=== PATIENT | female | born 1980 | race Caucasian/White ===

== ENCOUNTER 2016-09-09 12:36 | Inpatient (IN) | payer OTHER ==
[~2016-09-09] VITALS: Ht 167.6 cm; Wt 92.8 kg
[~2016-09-09 12:36] MED LIST: CEPH500C PO; FLUO20TA28 PO; MULT1CAP33 PO; OXYB15TA PO; OXYC1TAB24 PO; TRAZ-115 PO
[2016-09-09] MEDS ORDERED: CeFAZolin 2 Gm/50 mL D5W IV Premix IV ONE (13:24)
[2016-09-09 13:30] VITALS: BP 115/81; PULSE 90; RESP 14; O2SAT 97
[2016-09-09] MEDS ORDERED: Lactated Ringer's 1,000 ML IV ONE (13:30)
[2016-09-09] MEDS ORDERED: HYDR-3090 PO (14:14)
--- NOTE | 2016-09-09 15:37 | PCM.HPANE ---
Patient Data Surgeon Admitting Provider: Attending Provider:Benjamin Bojorquez DO Primary Care Physician:Darlyn Lynn MD Other Provider:Serina Gasparingham Anesthesia Reason for Visit Right Hip Infection Ht/WT & BMI Height (Feet): 5 Height (Inches): 6 Weight (Kilograms): 92.8 Body Mass Index 32.00, 32.00 Allergies Coded Allergies: hydroxyzine (Verified Allergy, Severe, anxiety, twitching, 09/09/16) duloxetine (Verified Adverse Reaction, Intermediate, metallic taste, BP increase, 09/09/16) Past Anesthesia History Anesthesia History: Denies:: Abnormal Airway, Anesthesia Reactions, Difficult Intubation, Fam Anesthesia Reaction, Fam Malignant Hypertherm, Malignant Hyperthermia Diabetes History Hx Diabetes?: No MRSA MRSA: No Medications Hypertension Medication: No Home Meds Incl Beta Colton: No Active Scripts Cephalexin 500 Mg [id number] Mg PO QID #56 CAPSULE Prov:Stephanie Gan PA-C 08/29/16 Reported Medications Hydrocodone-Acetaminophen 5-300 mg 1 Each Tablet2 Tablet PO Q4H PRN For Pain Ref 0 09/09/16 Multivitamin (Multivitamins)1 Each Capsule1 Each PO DAILY 08/26/16 Fluoxetine 20 Mg Cttequ06 Mg PO DAILY 08/26/16 Oxybutynin Chloride ER 15 Mg Tab.er.2415 Mg PO DAILY 08/26/16 Trazodone 50 Mg Eitqhz91 Mg PO HS PRN Insomnia 07/29/16 Discontinued Scripts oxyCODONE-Acetaminophen 5-325 mg 1 Each Tablet1-2 Each PO Q4H PRN For Pain #90 Max 8 per day Prov:Stephanie Gan PA-C 08/29/16 History History of ENT Problems?: No HEENT History: Denies:: Abnormal Airway Cataracts Difficult Intubation Dysphagia Glaucoma Hearing Problem Sinus Problem TMJ Hx of Heart Problems?: No Cardiovascular History: Denies:: AICD Abdominal Aortic Aneurism Atrial Fibrillation Cardiac Surgery Chest Pain Congestive Heart Failure Coronary Artery Disease Edema Heart Murmur Hypertension Irregular Heartbeat Pacemaker Peripheral Vascular Rheumatic Fever Thrombophlebitis Valvular Heart Disease Hx of Respiratory Problem?: No Respiratory History: Denies:: Asthma COPD Chest Surgery Cough Dyspnea Emphysema Hemoptysis Oxygen Administration Pneumonia Pulmonary Embolism Tuberculosis Use of C-PAP Machine Use of Inhalers / NEBS Hx Neurologic Problems?: No Neurological History: Denies:: Alzheimer's Disease CVA Dementia Dizziness Headaches Multiple Sclerosis Parkinson's Disease Seizures TIA Hx of GI Problems?: No Gastrointestinal History: Denies:: Cirrhosis Diverticulitis Gall Bladder Disease Gastroesphageal Reflux Gastrointestinal Bleeding Heartburn Hepatitis Hiatal Hernia Liver Disease Rectal Bleeding Hx of Problems?: No Genitourinary History: Denies:: HX of Hemodialysis Kidney Stones Urinary Tract Infection HX of Peritoneal Dialysis: No Female Hx: Denies:: Currently Endometriosis Pelvic Inflammatory Problems with Breasts? Skin History: Denies:: History Skin Disorders? Pressure Ulcers Hx Musculoskeletal Problems?: No Musculoskeletal History: Denies:: Back Injury Degenerative Joint Fibromyalgia Joint Replacement Musculoskeletal Trauma Myasthenia Gravis Osteoarthritis Rheumatoid Arthritis Systemic Lupus Hx of Psycho/Social Problems?: No Psycho Social History: Positive for:: Anxiety Hx Depression Denies:: Bipolar Disorder Hx Surgeries?: Yes ([facility]) Hx Any Other Health Problems?: No Other History: Positive for:: Hospitalization ([facility]) Denies:: Cancer Endocrine Disease Thyroid Disease History Blood Transfusions: Positive for:: Accept Blood Products? Blood Transfusions Denies:: Blood Transfuse Reaction Hx Diabetes: No Hx Alcohol Use: NoHx Substance Use: No Smoking Status: Never Smoker Have You Smoked inLast 12 mo: No Stop/Bang Treated for Sleep Apnea?: No Do You Have a CPAP Machine?: No S-Snoring: Do You Snore Loudly: No T-Tired: feel tired, fatigued: No O-Obsered: Observed not breath: No P-Blood Pressure: treated: No B- Body Mass Index > 35 kg/m2: No A- Age over 50: No N- Neck Large Circumference: No G- Gender Male: No OMER Total Score: 0 Risk Assessment Category Category 1A: Patient has history of documented sleep apnea, and HAS NOT received any narcotic, sedative or anesthesia administration during this stay. Category 1B: Patient has history of documented sleep apnea, and HAS received any narcotic , sedative or anesthesia administration during this stay Category 2: Patient has SUSPECTED Obstructive Sleep Apnea, and HAS received any narcotic , sedative or anesthesia administration during this stay. Category 3: Patient has SUSPECTED Obstructive Sleep Apnea and HAS NOT received narcotic, sedative or anesthesia administration during this stay. Category 4: Outpatient in Procedural Areas with known sleep apnea or who screen positive for High Risk via the STOP/BANG questionnaire. Exam Exam Vital Signs Vital Signs Date Time Temp Pulse Resp B/P Pulse Ox O2 Delivery O2 Flow Rate FiO2 09/09/16 13:30 36.9 90 14 115/81 97 Room Air General Appearance: Alert, Oriented X3, Cooperative, No Acute Distress HEENT/AIRWAY: MP 2 Lungs: Clear to Auscultation, Normal Air Movement Heart: Exam Unremarkable, Regular Rate/Rhythm, No Murmurs/Rubs/Gallops Meds/Labs/Diagnostics Admission Meds Current Medications Lactated Ringer's (Lr) 1,000 ml @ ud STK-MED ONCE IV Last administered on t 13:30; Start 09/09/16 at 13:30; Stop 09/09/16 at 14:10; Status DC Plan Impression Patient chart reviewed, patient interviewed and anesthestic plan with risks, benefits, and alternatives discussed, and informed consent obtained. NPO Status: 0700 ASA Physical Status: ASA2 Mod Systemic Disease Anesthetic Plan: GA Bene/Risks/Altern/Consents: Yes HP Complete Prior to Induction: Yes Phi Ybarra MD Sep 09, 2016 15:36
[2016-09-09] MEDS ORDERED: Lactated Ringer's 1,000 ML IV SCH (15:38)
[2016-09-09] MEDS ORDERED: Lactated Ringer's 500 ML IV PRN (15:38)
[2016-09-09] MEDS ORDERED: Ondansetron 2 mg/mL 2 mL Inj IVPUSH PRN ×2 (15:40→16:45)
[2016-09-09] MEDS ORDERED: MetoCLOpramide 5 mg/mL 2 mL Inj IVPUSH PRN (15:40)
[2016-09-09] MEDS ORDERED: Dexamethasone 4 mg/mL Inj IVPUSH PRN (15:40)
[2016-09-09] MEDS ORDERED: Phenylephrine 10,000 mCg/mL Inj IVPUSH PRN (15:40)
[2016-09-09] MEDS ORDERED: EPHEDrine Sulfate 50 mg/mL Inj IVPUSH PRN (15:40)
[2016-09-09 16:45] VITALS: BP 107/75; PULSE 94; RESP 15; O2SAT 98
[2016-09-09] MEDS ORDERED: Polyethylene Glycol (PEG) 17 Gm Powder PO PRN (16:45)
[2016-09-09] MEDS ORDERED: hydrOXYzine Pamoate 25 mg Capsule PO PRN (16:45)
[2016-09-09] MEDS ORDERED: Acetaminophen IV 1,000 MG in IV Premix 1 EACH IV PRN (16:45)
[2016-09-09] MEDS ORDERED: Magnesium Hydroxide 10 mL Oral Concentration PO PRN (16:45)
[2016-09-09] MEDS: fentaNYL-PF 50 mCg/mL 2 mL Inj IVPUSH PRN ×4 (16:55→17:30)
[2016-09-09] MEDS: HYDROmorphone 1 mg/mL Inj IVPUSH PRN ×5 (16:55→17:41)
--- NOTE | 2016-09-09 17:14 | OP ---
[address] [address] OPERATIVE REPORT PATIENT: ROLAND MCGREGOR : 1980 MR#: [id number] ADMIT: 09/09/2016 JOB ID: [id number] DATE OF SURGERY: 09/09/2016 SURGEON: Benjamin Bojorquez DO PREOPERATIVE DIAGNOSIS(ES): Right hip seroma. POSTOPERATIVE DIAGNOSIS(ES): Right hip seroma. PROCEDURE: Right hip irrigation debridement with wound VAC application. ANESTHESIA: General. INDICATIONS: The patient is a 35-year-old female, who underwent a right hip iliotibial band lengthening approximately four weeks ago; was initially doing well but then developed ecchymosis, bruising and ultimately an infected hematoma which was washed out August 26, 2016 with a drain placement. She then did well from this procedure; however developed increasing serous drainage from the wound and increasing pain over the past several days, and presented to the clinic today where she had some fluctuant swelling in the wound and serous drainage as well as some redness. We discussed treatment options and she wished to proceed with repeat irrigation debridement with wound VAC application. We discussed the risks, benefits, and possible complications of surgery, including, but not limited to injury to nerves and vessels, infection, bleeding, incomplete relief of symptoms, stiffness, need for additional procedures. The patient had good understanding. All questions were answered and she wished to proceed. PROCEDURE IN DETAIL: The patient was brought to the operating room. She was given a general anesthetic and placed comfortably into the lateral decubitus position. The right hip was sterilely prepped and draped. We removed her sutures and opened up the distal aspect of the incision. There was an eruption of serous fluid from the wound We sent some of this for culture. The cavity tracked superiorly, and therefore I opened the full extent of the previous surgical wound to get out the seroma cavity. I then used a curette to debride and curet the farr of the seroma cavity. Her iliotibial band was intact and did not have any purulence or breakdown on tendinous tissue. The wound was then copiously irrigated with pulse lavage after debriding necrotic fat and nonviable gelatinous material. The wound appeared to be clean with no significant residual bleeding. A wound VAC was then applied. I used white sponge first over the ITB, followed by the black foam sponge and applied the wound VAC which had very low leak rate and placed it at 125 mm continuous suction. The patient tolerated the procedure well. BLOOD LOSS: 50 cc. SPECIMEN: Right hip fluid. POSTOPERATIVE PROTOCOL: Have the patient remain partial weightbearing on the right lower extremity. I would like her to continue with the wound VAC for likely a period of about 72 hours and plan for a probable repeat I and D, delayed wound closure, and possible skin VAC application, perhaps Wednesday or Wednesday. Would also like to consult Infectious Disease regarding this unusual case. She had a sensitive staph which grew from her previous hematoma.
[2016-09-09 18:15] VITALS: BP 117/77; PULSE 65; RESP 18; O2SAT 99
[2016-09-09] MEDS ORDERED: fentaNYL-PF 50 mCg/mL 2 mL Inj ONE (18:16)
[2016-09-09] MEDS: 0.9% Sodium Chloride 1,000 ML IV SCH (18:32)
[2016-09-09] MEDS: oxyCODONE-Acetamin 5-325 mg Tablet PO PRN ×2 (18:32→23:10)
--- NOTE | 2016-09-09 18:38 | NUR ---
ADMIT TO [facility] Patient arrived to room [facility], was transferred to hospital bed via slide board and 3 ppl assist. Wound vac in place to R hip, continuous suction @ 125mmHg with sero-sanguineous output in drainage canister. On 2 LPM O2 via NC with O2 sats @ 99%. Stated pain is 7/10 burning pain in R hip. IV site was burning after attaching NS @ 100/hr. Turned off fluids, flushed with NS. Applied heat pack. Neurovascular checks WNL. Drinking ice water and apple juice without any problem. Oriented to room.
[2016-09-09] MEDS: Senna-Docusate 8.6-50 mg Tablet PO SCH (20:13)
[2016-09-09] MEDS: Sodium Chloride LOK Flush 10 mL Syringe IV SCH (23:11)
[2016-09-10 00:17] VITALS: BP 117/78; PULSE 52; RESP 20; O2SAT 93
[2016-09-10] MEDS: CeFAZolin Inj 2 GM in IV Premix 1 EACH IV SCH ×3 (00:17→16:39)
[2016-09-10] MEDS: 0.9% Sodium Chloride 1,000 ML IV SCH ×3 (02:44→22:10)
[2016-09-10] MEDS: oxyCODONE-Acetamin 5-325 mg Tablet PO PRN ×5 (02:48→23:10)
--- NOTE | 2016-09-10 03:06 | NUR ---
Pain & WoundVac Pain rates up to 04/15 at R hip this shift, so far managed with PO percocet. NS running at 60 ml/hr without pain, IV abx tolerated without complaint. Pt up to bedside commode to void, WBAT and used walker. Pt requested to remove supplemental O2, VS remain WNL. Wound vac intact to R hip with sanguinous drainage. Will continue to monitor and treat pain.
[2016-09-10] MEDS: HYDROmorphone 1 mg/mL Inj IVPUSH PRN ×2 (03:50→06:30)
[2016-09-10 04:36] VITALS: BP 107/73; PULSE 81; RESP 20; O2SAT 98
[2016-09-10 06:28] LABS: BASOPHILS % (AUTO) 0.3 % (0-3); EOSINOPHILS % (AUTO) 0.7 % (0-5); MONOCYTES % (AUTO) 5.8 % (4-12); Mean Corpuscular Hemoglobin 27.3 pg (27.0-35.0); Mean Corpuscular Volume 89.3 fL (81-100); NEUTROPHILS % (AUTO) 64.3 % (40-74); Platelet Count 374 bil/L (150-400)
[2016-09-10] MEDS: Senna-Docusate 8.6-50 mg Tablet PO SCH ×2 (07:37→19:16)
--- NOTE | 2016-09-10 08:33 | PCM.ANEP1 ---
Post Anesthesia Phase 1 PACU Phase 1 Assessment Vital Signs Vital Signs Date Time Temp Pulse Resp B/P Pulse Ox O2 Delivery O2 Flow Rate FiO2 09/10/16 04:36 36.0 81 20 107/73 98 Room Air Level of Alertness: Awake, talking WATSON's with Equal Strength: Yes Pain: No Pain Scale Score: 7 Nausea or Vomiting: No Lungs: Clear to Auscultation, Normal Air Movement Phi Ybarra MD Sep 10, 2016 08:33
--- NOTE | 2016-09-10 08:33 | PCM.ANEP2 ---
Post Anesthesia Evaluation ASA/CMS Post Anesthesia VS in Patient's Normal Range?: Yes Resp Stable; Airway Patent?: Yes CV Function & Hydration Stable: Yes Mental Status Recovered?: Yes Pain control Satisfactory?: Yes N/V Control Satisfactory?: Yes Phi Ybarra MD Sep 10, 2016 08:33
[2016-09-10] MEDS: Sodium Chloride LOK Flush 10 mL Syringe IV SCH ×3 (08:36→19:18)
--- NOTE | 2016-09-10 08:40 | PCM.PNORTH ---
Subjective Date of Service: Sep 10, 2016 Visit Information: Reason for Visit Right Hip Infection Surgery/Surgery Date Post-Op Day # Date of Admission: Sep 09, 2016 at 18:15 Hospital Day # Subjective Foundation awake and alert this morning and well positioned in bed. Patient does indicate she has had significant pain at the right hip and was unable to sleep all night. She has no other complaints at this time and is very appreciated of Dr. Bojorquez and James Gan PA-C for their help in this matter. Patient relates that her left hip surgery has worked out very well and she is quite comfortable on that side. Postop General: No Shortness of Breath, No Chest Pain Pain Management: PO, IV Push Objective Exam Objective Orientation: Alert and oriented 3 and pleasant. Dressing: Wound VAC dressing is in place and working at the right hip. Scant drainage is noted at this time. Wound: Wound is open with wound VAC packing and vacuum apparatus in place and is well sealed and working. Compartments: Thigh and calf are soft and nontender Mobility/sensation: Mobility and sensation are intact to right lower extremity distally Jimenez: Absent Drain: Wound VAC in place at right hip wound. Gait: Up ad royce. to bathroom with assistance. Vital Signs and I/O Vital Sign - Last Date Time Temp Pulse Resp B/P Pulse Ox O2 Delivery O2 Flow Rate FiO2 09/10/16 04:36 36.0 81 20 107/73 98 Room Air 09/09/16 18:15 2.00 Intake and Output 09/09/16 09/09/16 09/10/16 Cumulative From/Thru 15:00 23:00 07:00 09/09/16 13:30 - 09/10/16 03:55 Intake Total 250 ml 318 ml 568 ml Balance 250 ml 318 ml 568 ml IV Total 250 ml 318 ml 568 ml Lab & Micro Results Laboratory Tests Test 09/09/16 17:25 09/10/16 06:00 C-Reactive Protein 0.1mg/dL (0.0-0.5) White Blood Count 8.8th/mm3 (3.8-10.1) Red Blood Count 3.55mil/mm3 (3.90-5.20) Hemoglobin 9.7g/dL (12.0-15.6) Hematocrit 31.7% (35.0-46.0) Mean Corpuscular Volume 89.3fL (81-100) Mean Corpuscular Hemoglobin 27.3pg (27.0-35.0) Mean Corpuscular Hemoglobin Concent 30.6% (32.0-37.0) Red Cell Distribution Width 15.5% (12.3-15.4) Platelet Count 374bil/L (150-400) Neutrophils (%) (Auto) 64.3% (40-74) Lymphocytes (%) (Auto) 28.6% (14-46) Monocytes (%) (Auto) 5.8% (4-12) Eosinophils (%) (Auto) 0.7% (0-5) Basophils (%) (Auto) 0.3% (0-3) Sodium Level 140mEq/L (134-144) Potassium Level 4.0mEq/L (3.5-5.2) Chloride Level 103mEq/L (97-108) Carbon Dioxide Level 24mmol/L (18-29) Blood Urea Nitrogen 7mg/dL (6-20) Creatinine 0.51mg/dL (0.57-1.00) Estimat Glomerular Filtration Rate 194mL/min (>59) Glucose Level 99mg/dL (60-99) Calcium Level 8.9mg/dL (8.5-10.1) Microbiology 09/09/16 Gram Stain - Final, Resulted 09/09/16 Culture & Sensitivity, Resulted Pending 09/09/16 Anaerobic Culture, Resulted Pending Result Diagram: 09/10/16 0600 09/10/16 0600 General Appearance: Alert, Oriented X3, Cooperative, No Acute Distress Extremities: No Compartment Syndrom Noted, Thigh & Calf Soft/Nontender Postop Sensory Motor: Distal Motor Intact, Movement in Toes, Distal Sensation Intact SURGICAL WOUND : Drain Location Body Site: Hip Wound Drainage Type: Wound Vac Assessment & Plan Impression Patient is a 35-year-old female who was admitted for complications regarding a right iliotibial band lengthening and bursectomy procedure. She has had an I&D of the right hip and is currently on antibiotics and using a wound VAC. This wound VAC will remain in place for [address] then [address] Bojorquez will consider repeat I&D. Problems: Plan Postop day #1 from right hip surgical wound I&D and wound VAC placement by Dr. Bojorquez on 09/09/2015. Weight bearing status: Partial weightbearing at the right lower extremity using front wheeled walker. Mobility aid: Front wheeled walker Immobilization: None Precautions: Partial weightbearing only at the right lower extremity. Physical therapy: Continue physical therapy with partial weightbearing at the right lower extremity for mobility, gait and safety. Pain control: Current pain medications include Percocet 5/325 and IV Dilaudid. I have added additional oxycodone 5 mg today every 4-6 hours when necessary for pain in hopes of avoiding IV Dilaudid. DVT prophylaxis: Bilateral SCDs in place. Wound care: Continue wound VAC system for 72 hours postop with reevaluation by Dr. bo regarding possible repeat I&D and right lateral hip. Infectious DZ: Cefazolin antibiotics in place with infectious disease consultation from Dr. Canales pending. Jimenez: Absent Dressing: Wound VAC dressing in place Drain: Wound VAC dressing in place Nursin-week follow-up: To be determined 6-week follow-up: To be determined Discharge plan: To be determined VTE Prophylaxis: SCDs (bilateral SCDs in place for DVT prophylaxis.) Kwabena Bhatia PA-C Sep 10, 2016 08:25
[2016-09-10 10:09] VITALS: BP 102/69; PULSE 86; RESP 21; O2SAT 97
[2016-09-10 15:18] VITALS: BP 126/78; PULSE 92; RESP 20; O2SAT 96
--- NOTE | 2016-09-10 16:35 | CONS ---
[address] [address] CONSULTATION REPORT PATIENT: ROLAND MCGREGOR : 1980 MR#: [id number] ADMIT: 09/09/2016 JOB ID: [id number] DATE OF SERVICE: 09/10/2016 INFECTIOUS DISEASE CONSULTATION: I thank Dr. Bojorquez of orthopedics for this timely consult. REASON FOR CONSULTATION: MSSA infection at the site of the right iliotibial band lengthening. HISTORY OF PRESENT ILLNESS: The patient is a 35-year-old woman with an unexplained chronic transfusion-dependent anemia, as well as calcification and shortening of the bilateral iliotibial bands. In March of this year the patient underwent an elective procedure to have a trochanteric bursa excised and her left iliotibial band lengthened. This operation was relatively uncomplicated, though there was a postop hematoma, but afterwards the patient did quite well. On August 04 she underwent the same procedure on the right side. That surgery was also complicated by hematoma which secondarily became infected and required her admission to this facility on August 26. At that time the patient had just been started on oral antibiotics, but she was doing poorly and grossly infected with fevers, chills, sweats, leukocytosis, high CRP, and aspirate and drainage of the hematoma yielded MSSA. She was given a few days of IV antibiotics after her hematoma was evacuated and she was sent home on oral Keflex which she has remained on until the time of her readmission yesterday. The patient was readmitted yesterday for drainage and debridement of her right hip seroma and the right hip wound. During that surgery yesterday Dr. Bojorquez found serous fluid under pressure within the wound which was sent for Gram stain and culture. He performed a debridement and did not see any purulence of the iliotibial band, which had been lengthened. The area was lavaged and a wound VAC was applied. The patient tolerated the procedure well. The patient tells us that in the time between her discharge around and her readmission yesterday she has been relatively free of constitutional symptoms, though she has had a bit of possible chills, but very minimal as compared to her symptoms on or about August 25-. Right now she has no fevers, chills, or sweats, and really no symptoms whatsoever, except for some pain right where the wound VAC is present. Plans are being made to do an another debridement on September 12. PAST MEDICAL HISTORY: 1. Chronic unexplained anemia. 2. Bilateral iliotibial band calcification and shortening with associated bilateral trochanteric bursitis. 3. History of bilateral congenital hip dysplasia. SOCIAL HISTORY: The patient is a nonsmoker who has not had any alcohol in about a year or so due to this ongoing series of surgeries. The patient is not currently employed but formerly served in the [place] She has not traveled much, though she [place] border [place] to an event in [place]. FAMILY HISTORY: Positive for her father who had latent TB, but not active disease. Given that she was in the , she has undoubtedly been checked herself. REVIEW OF SYSTEMS: The patient has no headache, visual complaints, sore throat, cough, shortness of breath, nausea, vomiting, diarrhea, or dysuria. PHYSICAL EXAMINATION: Reveals an afebrile woman, temperature 36.7. Pulse 92, respiratory rate 20, blood pressure 126/78. She is saturating well on room air and in absolutely no distress. Head: Normal. Eyes: Without conjunctivitis. Lungs: Clear. Heart: Cardiac tones no murmur. Abdomen: Benign. No hepatosplenomegaly or ascites. She does not have a Jimenez catheter. Left lower extremity looks good. The right lower extremity has a wound VAC present over the trochanteric bursa area which appears uninfected around the margins. No edema. The patient is neurologically intact. LABORATORIES: Include white count 8800, hematocrit 32, platelet count 374. Creatinine 0.51. Micro studies from this admission include a Gram stain which showed moderate polys but no organisms. From yesterday the culture is negative at 24 hours. A previous culture was reviewed it shows an MSSA which is resistant to clindamycin but otherwise sensitive to all standard antistaphylococcal antibiotics. No recent x-rays are available. A chest x-ray on August 26 showed an increased opacity in the right suprahilar area which should be followed up at some point. IMPRESSION: This patient had a very significant MSSA infection with high CRP and leukocytosis during her admission on August 26. At that time an MSSA infected hematoma was drained and the patient discharged on oral Keflex. She has done well with respect to infection as an outpatient but has developed a large seroma now requiring debridement and drainage. At this point that seroma appears uninfected. RECOMMENDATIONS: 1. I would continue with Ancef 2 g IV q.8 h. 2. We await the final cultures on the seroma fluid that was aspirated; but, if this is negative, I think we can consider stopping antibiotics within the next few days.
[2016-09-10] MEDS: Tolterodine ER 2 mg ER24 Capsule PO SCH (18:26)
--- NOTE | 2016-09-10 19:26 | NUR ---
PAIN MGMT P: Patient complains of 8/10 burning pain to R hip around incision. I: Administering percocet 2 tabs Q4H and oxycodone 5mg for breakthrough pain. Also placed ice pack on R hip. E: Patient states she is feeling better, especially if she doesn't move much and applies ice. Pain level comes down to a 5-6/10 which is tolerable for patient.
[2016-09-10 20:14] VITALS: BP 106/72; PULSE 82; RESP 18; O2SAT 97
[2016-09-11] MEDS: CeFAZolin Inj 2 GM in IV Premix 1 EACH IV SCH ×3 (00:15→16:58)
[2016-09-11 01:50] VITALS: BP 108/71; PULSE 70; RESP 16; O2SAT 97
[2016-09-11] MEDS: oxyCODONE-Acetamin 5-325 mg Tablet PO PRN ×5 (03:38→21:01)
--- NOTE | 2016-09-11 04:18 | NUR ---
Pain PRN percocet effective for pain this shift. Trazodone administered, patient is sleeping and comfortable most of shift. Wound vac in place and yielding minimal sanguinous drainage. No complaints of SOB, N/V. Pt aware of surgery scheduled for 09/12. Iv intact and patent. SBA with walker to bedside commode. Will continue to monitor and provide cares
[2016-09-11 05:35] VITALS: BP 107/68; PULSE 72; RESP 18; O2SAT 99
[2016-09-11 06:00] LABS: MONOCYTES % (AUTO) 7.2 % (4-12); Mean Corpuscular Hemoglobin 27.6 pg (27.0-35.0); Mean Corpuscular Volume 90.2 fL (81-100); NEUTROPHILS % (AUTO) 34.8 % (40-74); Platelet Count 312 bil/L (150-400)
--- NOTE | 2016-09-11 06:55 | PCM.PNORTH ---
Subjective Date of Service: Sep 11, 2016 Visit Information: Reason for Visit Right Hip Infection Surgery/Surgery Date Post-Op Day # Date of Admission: Sep 09, 2016 at 18:15 Hospital Day # Subjective Patient awake and alert this morning well positioned in bed. No complaints of pain at this time. Patient indicates she is doing better on the slightly increased oxycodone dose and has not used any IV pain medication since early yesterday. Patient was mobile yesterday to bedside commode but was not able to this with formal physical therapy due to timing and pain control. In discussion patient is anxious to participate with formal physical therapy today and indicates she will do so. She would also like to achieve a goal of getting to the bathroom today if possible. We discussed her wound VAC and I look very closely today and I believe the suction foot is well positioned over the foam and it does appear to be working appropriately. Postop General: No Complaints, No Shortness of Breath, No Chest Pain Pain Management: PO Objective Exam Objective Orientation: Alert and oriented 3 and pleasant. Dressing: Wound VAC dressing is in place and working properly. Wound: Surgical wound appears in good condition with wound VAC in place. Compartments: Thigh and calf are soft and nontender. Bilateral SCDs in place and working. Mobility/sensation: Toe wiggle and sensation are intact at right lower extremity distally Jimenez: Absent Drain: Wound VAC in place Gait: Up to bedside commode but no gait training yesterday on 09/10/2015 Vital Signs and I/O Vital Sign - Last Date Time Temp Pulse Resp B/P Pulse Ox O2 Delivery O2 Flow Rate FiO2 09/11/16 05:35 36.1 72 18 107/68 99 Room Air 09/09/16 18:15 2.00 Intake and Output 09/10/16 09/10/16 09/11/16 Cumulative From/Thru 15:00 23:00 07:00 09/09/16 13:30 - 09/11/16 06:08 Intake Total 400 ml 1115 ml 381 ml 2464 ml Output Total 1050 ml 650 ml 500 ml 2200 ml Balance -650 ml 465 ml -119 ml 264 ml Intake Oral 400 ml 985 ml 200 ml 1585 ml IV Total 130 ml 181 ml 879 ml Output Urine Total 1050 ml 650 ml 500 ml 2200 ml Lab & Micro Results Laboratory Tests Test 09/11/16 05:12 White Blood Count 5.0th/mm3 (3.8-10.1) Red Blood Count 3.26mil/mm3 (3.90-5.20) Hemoglobin 9.0g/dL (12.0-15.6) Hematocrit 29.4% (35.0-46.0) Mean Corpuscular Volume 90.2fL (81-100) Mean Corpuscular Hemoglobin 27.6pg (27.0-35.0) Mean Corpuscular Hemoglobin Concent 30.6% (32.0-37.0) Red Cell Distribution Width 15.5% (12.3-15.4) Platelet Count 312bil/L (150-400) Neutrophils (%) (Auto) 34.8% (40-74) Lymphocytes (%) (Auto) 54.6% (14-46) Monocytes (%) (Auto) 7.2% (4-12) Eosinophils (%) (Auto) 2.0% (0-5) Basophils (%) (Auto) 1.0% (0-3) Microbiology 09/09/16 Gram Stain - Final, Resulted 09/09/16 Culture & Sensitivity - Preliminary, Resulted No growth to date 09/09/16 Anaerobic Culture, Resulted Pending Result Diagram: 09/11/16 0512 09/10/16 0600 General Appearance: Alert, Oriented X3, Cooperative, No Acute Distress Extremities: No Compartment Syndrom Noted, Thigh & Calf Soft/Nontender Postop Sensory Motor: Distal Motor Intact, Movement in Toes, Distal Sensation Intact SURGICAL WOUND : Drain Location Body Site: Hip Wound Drainage Type: Wound Vac Activity: Activity per PT, Ambulate with PT (partial weightbearing at the right lower extremity using front wheeled walker.) Catheters: None Assessment & Plan Impression Patient is a 35-year-old female who has undergone some complications secondary to a right iliotibial band lengthening procedure. She is actually doing much better today with improved pain control and is anxious to participate in formal physical therapy. Problems: Plan Postop day #2 from right hip surgical wound I&D and wound VAC placement by Dr. Bojorquez on 09/09/2015. Weight bearing status: Partial weightbearing at the right lower extremity using front wheeled walker. Mobility aid: Front wheeled walker Immobilization: None Precautions: Partial weightbearing only at the right lower extremity. Physical therapy: Continue physical therapy with partial weightbearing at the right lower extremity for mobility, gait and safety. Patient has a stated goals morning of using the restroom instead of the BSC. Pain control: Current pain medications include Percocet 5/325 and Roxicodone. Patient indicates this has been working much better and her pain is reduced yesterday afternoon. DVT prophylaxis: Bilateral SCDs in place. ASA 325 mg EC by mouth daily we will begin today for chemical DVT prophylaxis. Wound care: Continue wound VAC system for 72 hours. Planned return to the OR on 09/12/[address] Bojorquez with repeat washout and wound closure with external incision VAC placement. Infectious DZ: Cefazolin antibiotics in place. Dr. Canales has consult of this patient yesterday on 09/10/2016. Following is Dr. Canales's impression and recommendations. IMPRESSION: This patient had a very significant MSSA infection with high CRP and leukocytosis during her admission on August 26. At that time an MSSA infected hematoma was drained and the patient discharged on oral Keflex. She has done well with respect to infection as an outpatient but has developed a large seroma now requiring debridement and drainage. At this point that seroma appears uninfected. RECOMMENDATIONS: 1. I would continue with Ancef 2 g IV q.8 h. 2. We await the final cultures on the seroma fluid that was aspirated; but, if this is negative, I think we can consider stopping antibiotics within the next few days. Jimenez: Absent Dressing: Wound VAC dressing in place and working. Drain: Wound VAC dressing in place and working. Nursing: Nursing please monitor wound VAC today for significant increase in wound drain output after ASA 325 by mouth is instituted. Patient will be made nothing by mouth after midnight tonight in anticipation of return to OR tomorrow with Dr. Bojorquez. 2-week follow-up: To be determined 6-week follow-up: To be determined Discharge plan: To be determined VTE Prophylaxis: SCDs (bilateral SCDs in place for DVT prophylaxis.), Other ( ASA 325 mg EC by mouth daily for DVT prophylaxis.) Kwabena Bhatia PA-C Sep 11, 2016 06:52
[2016-09-11] MEDS ORDERED: Non-Formulary Medication (Multivitamin (Multivitamins) 1 EACH) PO SCH (08:30)
[2016-09-11] MEDS: 0.9% Sodium Chloride 1,000 ML IV SCH ×2 (08:44→18:44)
[2016-09-11] MEDS: Tolterodine ER 2 mg ER24 Capsule PO SCH (09:13)
[2016-09-11] MEDS: Sodium Chloride LOK Flush 10 mL Syringe IV SCH ×2 (09:13→16:58)
[2016-09-11] MEDS: Senna-Docusate 8.6-50 mg Tablet PO SCH ×2 (09:13→21:00)
[2016-09-11 15:06] VITALS: BP 104/70; PULSE 80; RESP 18; O2SAT 95
--- NOTE | 2016-09-11 19:53 | NUR ---
Pain Patient medicated with percocet/oxycodone for pain of 7/10 q 4 hrs. Pt does have some relief of pain for about 3 hours . Pt with wound vac noted to right outer thigh/hip area. Pt to go to or tomorrow for possible closure of wound.
[2016-09-11 20:41] VITALS: BP 117/72; PULSE 80; RESP 18; O2SAT 99
[2016-09-11] MEDS: diphenhydrAMINE 25 mg Capsule PO PRN (21:00)
[2016-09-12] VITALS (8 sets, daily range): BP systolic 100–137; BP diastolic 68–91; PULSE 70–95; RESP 8–18; O2SAT 91–100
[2016-09-12] MEDS: CeFAZolin Inj 2 GM in IV Premix 1 EACH IV SCH ×5 (00:47→16:39)
[2016-09-12] MEDS: Sodium Chloride LOK Flush 10 mL Syringe IV SCH ×3 (00:47→16:41)
[2016-09-12] MEDS: oxyCODONE-Acetamin 5-325 mg Tablet PO PRN ×3 (00:59→17:35)
--- NOTE | 2016-09-12 07:57 | NUR ---
To OR for surgery patient going to OR for right hip surgery. patient has been NPO after midnight. Saline locked right arm. per OR report Ancef scheduled will be given at OR. patient aware.
[2016-09-12] MEDS ORDERED: Lactated Ringer's 1,000 ML IV SCH (08:17)
[2016-09-12] MEDS ORDERED: Lactated Ringer's 1,000 ML IV ONE (08:17)
[2016-09-12] MEDS ORDERED: Lactated Ringer's 500 ML IV PRN (08:17)
[2016-09-12] MEDS ORDERED: Labetalol 5 mg/mL 4 mL Inj IV PRN (08:20)
[2016-09-12] MEDS ORDERED: MetoCLOpramide 5 mg/mL 2 mL Inj IVPUSH PRN (08:20)
[2016-09-12] MEDS ORDERED: EPHEDrine Sulfate 50 mg/mL Inj IVPUSH PRN (08:20)
[2016-09-12] MEDS ORDERED: EPHEDrine Sulfate 50 mg/mL Inj IM PRN ×2 (08:20)
[2016-09-12] MEDS ORDERED: Atropine 0.4 mg/mL Inj IVPUSH PRN (08:20)
[2016-09-12] MEDS ORDERED: Ondansetron 2 mg/mL 2 mL Inj IVPUSH PRN (08:20)
[2016-09-12] MEDS ORDERED: hydrALAZINE 20 mg/mL Inj IVPUSH PRN (08:20)
[2016-09-12] MEDS ORDERED: HYDROmorphone 1 mg/mL Inj IVPUSH PRN (08:20)
[2016-09-12] MEDS ORDERED: Phenylephrine 10,000 mCg/mL Inj IVPUSH PRN (08:20)
--- NOTE | 2016-09-12 08:20 | NUR ---
NPO Patient NPO after midnight. Patient receiving Percocet and Oxycodone for pain. Patient up to bathroom independent with FWW. Patient A&Ox3.
[2016-09-12] MEDS ORDERED: Ropivacaine-PF 0.5% 30 mL Inj INFILTRATE ONE (09:03)
--- NOTE | 2016-09-12 09:05 | PCM.HPANE ---
Patient Data Surgeon Admitting Provider:Benjamin Bojorquez DO Attending Provider:Benjamin Bojorquez DO Primary Care Physician:Darlyn Lynn MD Other Provider:Michael Gaspar Anesthesia Reason for Visit Right Hip Infection Ht/WT & BMI Height (Feet): 5 Height (Inches): 6 Weight (Kilograms): 92.8 Body Mass Index 32.00, 32.00 Allergies Coded Allergies: hydroxyzine (Verified Allergy, Severe, anxiety, twitching, 09/09/16) duloxetine (Verified Adverse Reaction, Intermediate, metallic taste, BP increase, 09/09/16) Past Anesthesia History Anesthesia History: Denies:: Abnormal Airway, Anesthesia Reactions, Difficult Intubation, Fam Anesthesia Reaction, Fam Malignant Hypertherm, Malignant Hyperthermia Diabetes History Hx Diabetes?: No MRSA MRSA: No Medications Hypertension Medication: No Home Meds Incl Beta Colton: No Active Scripts Cephalexin 500 Mg [id number] Mg PO QID #56 CAPSULE Prov:Stephanie Gan PA-C 08/29/16 Reported Medications Hydrocodone-Acetaminophen 5-300 mg 1 Each Tablet2 Tablet PO Q4H PRN For Pain Ref 0 09/09/16 Multivitamin (Multivitamins)1 Each Capsule1 Each PO DAILY 08/26/16 Fluoxetine 20 Mg [id number] Mg PO DAILY 08/26/16 Oxybutynin Chloride ER 15 Mg Tab.[id number] Mg PO DAILY 08/26/16 Trazodone 50 Mg [id number] Mg PO HS PRN Insomnia 07/29/16 Discontinued Scripts oxyCODONE-Acetaminophen 5-325 mg 1 Each Tablet1-2 Each PO Q4H PRN For Pain #90 Max 8 per day Prov:Stephanie Gan PA-C 08/29/16 History History of ENT Problems?: No HEENT History: Denies:: Abnormal Airway Cataracts Difficult Intubation Dysphagia Glaucoma Hearing Problem Sinus Problem TMJ Hx of Heart Problems?: No Cardiovascular History: Denies:: AICD Abdominal Aortic Aneurism Atrial Fibrillation Cardiac Surgery Chest Pain Congestive Heart Failure Coronary Artery Disease Edema Heart Murmur Hypertension Irregular Heartbeat Pacemaker Peripheral Vascular Rheumatic Fever Thrombophlebitis Valvular Heart Disease Hx of Respiratory Problem?: No Respiratory History: Denies:: Asthma COPD Chest Surgery Cough Dyspnea Emphysema Hemoptysis Oxygen Administration Pneumonia Pulmonary Embolism Tuberculosis Use of C-PAP Machine Use of Inhalers / NEBS Hx Neurologic Problems?: No Neurological History: Denies:: Alzheimer's Disease CVA Dementia Dizziness Headaches Multiple Sclerosis Parkinson's Disease Seizures TIA Hx of GI Problems?: No Gastrointestinal History: Denies:: Cirrhosis Diverticulitis Gall Bladder Disease Gastroesphageal Reflux Gastrointestinal Bleeding Heartburn Hepatitis Hiatal Hernia Liver Disease Rectal Bleeding Hx of Problems?: No Genitourinary History: Denies:: HX of Hemodialysis Kidney Stones Urinary Tract Infection HX of Peritoneal Dialysis: No Female Hx: Denies:: Currently Endometriosis Pelvic Inflammatory Problems with Breasts? Skin History: Denies:: History Skin Disorders? Pressure Ulcers Hx Musculoskeletal Problems?: No Musculoskeletal History: Denies:: Back Injury Degenerative Joint Fibromyalgia Joint Replacement Musculoskeletal Trauma Myasthenia Gravis Osteoarthritis Rheumatoid Arthritis Systemic Lupus Hx of Psycho/Social Problems?: No Psycho Social History: Positive for:: Anxiety Hx Depression Denies:: Bipolar Disorder Hx Surgeries?: Yes ([facility]) Hx Any Other Health Problems?: No Other History: Positive for:: Hospitalization ([facility]) Denies:: Cancer Endocrine Disease Thyroid Disease History Blood Transfusions: Positive for:: Accept Blood Products? Blood Transfusions Denies:: Blood Transfuse Reaction Hx Diabetes: No Hx Alcohol Use: NoHx Substance Use: No Smoking Status: Never Smoker Have You Smoked inLast 12 mo: No Stop/Bang Treated for Sleep Apnea?: No Do You Have a CPAP Machine?: No S-Snoring: Do You Snore Loudly: No T-Tired: feel tired, fatigued: No O-Obsered: Observed not breath: No P-Blood Pressure: treated: No B- Body Mass Index > 35 kg/m2: No A- Age over 50: No N- Neck Large Circumference: No G- Gender Male: No OMER Total Score: 0 OMER Risk Assessment: Low Risk, <3 Yes Risk Assessment Category Category 1A: Patient has history of documented sleep apnea, and HAS NOT received any narcotic, sedative or anesthesia administration during this stay. Category 1B: Patient has history of documented sleep apnea, and HAS received any narcotic , sedative or anesthesia administration during this stay Category 2: Patient has SUSPECTED Obstructive Sleep Apnea, and HAS received any narcotic , sedative or anesthesia administration during this stay. Category 3: Patient has SUSPECTED Obstructive Sleep Apnea and HAS NOT received narcotic, sedative or anesthesia administration during this stay. Category 4: Outpatient in Procedural Areas with known sleep apnea or who screen positive for High Risk via the STOP/BANG questionnaire. Exam Exam Vital Signs Vital Signs Date Time Temp Pulse Resp B/P Pulse Ox O2 Delivery O2 Flow Rate FiO2 09/12/16 05:10 36.6 70 16 115/72 98 Room Air General Appearance: Alert, Oriented X3, Cooperative, No Acute Distress HEENT/AIRWAY: MP 1 Lungs: Clear to Auscultation, Normal Air Movement Heart: Exam Unremarkable, Regular Rate/Rhythm, No Murmurs/Rubs/Gallops Meds/Labs/Diagnostics Admission Meds Current Medications Aspirin (Ecotrin) 325 mg DAILY PO Last administered on 09/11/16 09:13; Start at 08:30 Fluoxetine HCl (Prozac) 20 mg DAILY PO Last administered on 09/11/16 09:13; Start 09/11/16 at 08:30 Labs Test 09/09/16 17:25 09/10/16 06:00 09/11/16 05:12 C-Reactive Protein 0.1mg/dL (0.0-0.5) Sodium Level 140mEq/L (134-144) Potassium Level 4.0mEq/L (3.5-5.2) Chloride Level 103mEq/L (97-108) Carbon Dioxide Level 24mmol/L (18-29) Blood Urea Nitrogen 7mg/dL (6-20) Creatinine 0.51mg/dL (0.57-1.00) Estimat Glomerular Filtration Rate 194mL/min (>59) Glucose Level 99mg/dL (60-99) Calcium Level 8.9mg/dL (8.5-10.1) White Blood Count 5.0th/mm3 (3.8-10.1) Red Blood Count 3.26mil/mm3 (3.90-5.20) Hemoglobin 9.0g/dL (12.0-15.6) Hematocrit 29.4% (35.0-46.0) Mean Corpuscular Volume 90.2fL (81-100) Mean Corpuscular Hemoglobin 27.6pg (27.0-35.0) Mean Corpuscular Hemoglobin Concent 30.6% (32.0-37.0) Red Cell Distribution Width 15.5% (12.3-15.4) Platelet Count 312bil/L (150-400) Neutrophils (%) (Auto) 34.8% (40-74) Lymphocytes (%) (Auto) 54.6% (14-46) Monocytes (%) (Auto) 7.2% (4-12) Eosinophils (%) (Auto) 2.0% (0-5) Basophils (%) (Auto) 1.0% (0-3) Plan Impression Patient chart reviewed, patient interviewed and anesthestic plan with risks, benefits, and alternatives discussed, and informed consent obtained. NPO Status: 0700 ASA Physical Status: ASA2 Mod Systemic Disease Anesthetic Plan: GA Bene/Risks/Altern/Consents: Yes HP Complete Prior to Induction: Yes Benjamin Cerda MD Sep 12, 2016 07:40
--- NOTE | 2016-09-12 09:49 | PCM.ANEP1 ---
Post Anesthesia Phase 1 PACU Phase 1 Assessment Vital Signs Vital Signs Date Time Temp Pulse Resp B/P Pulse Ox O2 Delivery O2 Flow Rate FiO2 09/12/16 05:10 36.6 70 16 115/72 98 Room Air Anesthetic Administered: GA Level of Alertness: Awake, talking WATSON's with Equal Strength: Yes Pain: No Nausea or Vomiting: No Oxygen Delivery: Nasal Cannula Lungs: Clear to Auscultation, Normal Air Movement Summary VSS Benjamin Cerda MD Sep 12, 2016 09:49
--- NOTE | 2016-09-12 09:50 | PCM.ANEP2 ---
Post Anesthesia Evaluation ASA/CMS Post Anesthesia VS in Patient's Normal Range?: Yes Resp Stable; Airway Patent?: Yes CV Function & Hydration Stable: Yes Mental Status Recovered?: Yes Pain control Satisfactory?: Yes N/V Control Satisfactory?: Yes Benjamin Cerda MD Sep 12, 2016 09:50
[2016-09-12] MEDS: fentaNYL-PF 50 mCg/mL 2 mL Inj IVPUSH PRN ×2 (10:08→10:20)
--- NOTE | 2016-09-12 10:11 | OP ---
[address] [address] OPERATIVE REPORT PATIENT: ROLAND MCGREGOR : 1980 MR#: [id number] ADMIT: 09/09/2016 JOB ID: [id number] DATE OF SURGERY: 09/12/2016 PREOPERATIVE DIAGNOSIS(ES): Right hip wound. POSTOPERATIVE DIAGNOSIS(ES): Right hip wound. PROCEDURE: Right hip wound irrigation, debridement and delayed primary closure with application of PREVENA skin Wound VAC. SURGEON: Benjamin Bojorquez DO ANESTHESIA: General. INDICATIONS: The patient is a 35-year-old female, who underwent a right iliotibial band lengthening procedure. She initially did well, however, developed pain, swelling and redness and ultimately an infected hematoma on the right side. We took her back to surgery and incised and drained this on August 27. Placed a drain. She initially did well with this on IV and then oral antibiotics with Keflex. However, she developed persistent serous drainage from the wound and I brought her back to surgery September 09, 2016 for a repeat I and D for possible infected seroma. The Wound VAC was placed at that time and we planned to go back to surgery today for a wound check with I and D and possible skin closure. We discussed the risks, benefits, and possible complications of surgery. All questions were answered and the patient wished to proceed. PROCEDURE IN DETAIL: The patient is brought to the operating room. She was given a LMA general anesthetic, placed comfortably into the lateral decubitus position. The right hip was sterilely prepped and draped. After the Wound VAC was removed, she had good granulation tissue. There was no purulence noted. No malodor. She did have some skin irritation around the edges of the wound which was thought to be perhaps due to Mastisol irritation. The wound and the leg were prepped and draped. We then irrigated the wound and gently debrided this. Used electrocautery for hemostasis and then I closed the wound with running 2-0 V lock sutures to close the deep layers and the skin was closed with interrupted 3-0 nylon. Some Naropin was added as an adjunct local anesthetic. The wound length after closure with a 16 cm and then a PREVENA 20 cm home skin VAC system was placed with no significant leakage noted. The patient tolerated the procedure well. Blood loss was minimal. POSTOPERATIVE PROTOCOL: Have the patient weightbear to tolerance. Use a walker for ambulation. Maintain the Wound VAC dressing for five days if possible. If it comes off or stops working, begins leaking, then she can discontinue this sooner. Anticipate that she can just go home and discontinue antibiotics tomorrow.
--- NOTE | 2016-09-12 10:38 | NUR ---
Back from surgery patient is back from surgery to OSC. per report from OR wound closer and has new wound vac. patient will stay overnight at the hospital pain medications given approx 0950 per report for hip discomfort. stable vital signs. no new orders.
[2016-09-12] MEDS: Tolterodine ER 2 mg ER24 Capsule PO SCH (10:42)
[2016-09-12] MEDS: Senna-Docusate 8.6-50 mg Tablet PO SCH ×2 (10:42→20:12)
[2016-09-12] MEDS: 0.9% Sodium Chloride 1,000 ML IV SCH (10:44)
[2016-09-12] MEDS ORDERED: fentaNYL-PF 50 mCg/mL 2 mL Inj ONE (14:38)
[2016-09-12] MEDS ORDERED: Ondansetron 2 mg/mL 2 mL Inj ONE (15:55)
[2016-09-12] MEDS ORDERED: Dexamethasone 4 mg/mL Inj ONE (15:55)
[2016-09-12] MEDS ORDERED: Propofol 10,000 mCg/mL 20 mL Inj ONE (15:55)
--- NOTE | 2016-09-12 16:07 | NUR ---
Discontinue PT courtesy visit; pt seen previously by PT and on FWW for last four weeks; spoke with pt; pt reports being up without difficulty after surgery today; has no questions or concerns about going home; denies need for further instruction; has nec DME; no further PT
--- NOTE | 2016-09-12 16:08 | NUR ---
verbal orders Received new orders from telecommunications switch technician Dr Stephanie Forrester r/t patient asking if' " i need to be on IV fluids? ." verbal orders received to discontinue 0.9% normal saline 1000ml r/t patient has been consuming fluids by mouth and able to her meals.
--- NOTE | 2016-09-12 16:12 | NUR ---
Pain and constipation C/o pain after right hip surgery and PRN pain medication given as ordered with effective results. Patient has not had BM since last . PRN Miralax given as ordered.
[2016-09-12] MEDS: HYDROmorphone 1 mg/mL Inj IVPUSH PRN (20:01)
[2016-09-12] MEDS: diphenhydrAMINE 25 mg Capsule PO PRN (20:11)
[2016-09-13] MEDS: CeFAZolin Inj 2 GM in IV Premix 1 EACH IV SCH ×2 (00:18→08:16)
[2016-09-13 00:20] VITALS: BP 103/69; PULSE 71; RESP 18; O2SAT 95
[2016-09-13] MEDS: HYDROmorphone 1 mg/mL Inj IVPUSH PRN ×2 (00:24→04:58)
[2016-09-13] MEDS: Sodium Chloride LOK Flush 10 mL Syringe IV SCH ×2 (00:25→08:23)
--- NOTE | 2016-09-13 03:51 | NUR ---
PAIN; benadryl 25mg po given for c/o itchiness with stated relief. Dilaudid for pain with good effectiveness. Wound vac intact.
[2016-09-13 04:52] VITALS: BP 104/66; PULSE 78; RESP 18; O2SAT 100
[2016-09-13] MEDS: oxyCODONE-Acetamin 5-325 mg Tablet PO PRN ×3 (07:18→15:45)
[2016-09-13] MEDS ORDERED: 0.9% Sodium Chloride 250 ML ONE (08:12)
[2016-09-13] MEDS: Senna-Docusate 8.6-50 mg Tablet PO SCH (08:17)
[2016-09-13] MEDS: Tolterodine ER 2 mg ER24 Capsule PO SCH (08:17)
[2016-09-13] MEDS: diphenhydrAMINE 25 mg Capsule PO PRN (08:20)
[2016-09-13 10:06] VITALS: BP 99/63; PULSE 82; RESP 18; O2SAT 100
[2016-09-13 14:04] VITALS: BP 107/70; PULSE 83; RESP 19; O2SAT 99
--- NOTE | 2016-09-13 14:33 | PCM.PNORTH ---
Subjective Date of Service: Sep 13, 2016 Visit Information: Reason for Visit Right Hip Infection Surgery/Surgery Date R HIP I&D W/VAC APPLICATION 09/12/16 Post-Op Day # Date of Admission: Sep 09, 2016 at 18:15 Hospital Day # Subjective Pt doing very well. Ready to go home. States that her drain has stopped and isn't putting out much today. Has some tingling and achiness to the buttocks region, otherwise doing well. Postop General: No Complaints, No Shortness of Breath, No Chest Pain Pain Management: PO Objective Exam Objective Pt is A&O x 3. Pt is answering questions appropriately. Pt able to wiggle toes. Calf is soft and non-tender. drain is intact, little output today. small area surrounding the incision which is erythematous underlying the adhesive. Vital Signs and I/O Vital Sign - Last Date Time Temp Pulse Resp B/P Pulse Ox O2 Delivery O2 Flow Rate FiO2 09/13/16 14:04 36.7 83 19 107/70 99 Room Air 09/12/16 09:50 2 Intake and Output 09/12/16 09/12/16 09/13/16 Cumulative From/Thru 15:00 23:00 07:00 09/09/16 13:30 - 09/13/16 06:20 Intake Total 650 ml 760 ml 600 ml 5674 ml Output Total 1000 ml 850 ml 5650 ml Balance 650 ml -240 ml -250 ml 24 ml Intake Oral 760 ml 600 ml 4145 ml IV Total 650 ml 1529 ml Output Urine Total 1000 ml 850 ml 5650 ml # Bowel Movements 0 0 Lab & Micro Results Microbiology 09/09/16 Gram Stain - Final, Resulted 09/09/16 Culture & Sensitivity - Preliminary, Resulted 09/09/16 Anaerobic Culture - Preliminary, Resulted Result Diagram: 09/11/16 0512 09/10/16 0600 SURGICAL WOUND : Drain Location Body Site: Hip Wound Drainage Type: Wound Vac Activity: Activity per PT, Ambulate with PT (partial weightbearing at the right lower extremity using front wheeled walker.) Catheters: None Assessment & Plan Impression s/p day 1 from R hip I&D, patient doing well, no antibiotics needed as cultures were negative. Problems: Plan Pt will be discharged to home today. Weight bear as tolerated. Pt sent home with Percocet and Oxycodone for breakthrough pain. Would vac will stay in place for up to 5 days. Recommend keeping on through tomorrow at least, if no drainage today through tomorrow, patient may remove wound vac. Patient may continue Benadryl for itching, if redness and itching getting worse , removing dressing may help with this as well. Cover incision as needed once wound vac removed. Do not soak wound, keep clean and dry after vac removal. Follow up in 1 [facility] with Dr. Bojorquez. VTE Prophylaxis: SCDs (bilateral SCDs in place for DVT prophylaxis.), Other ( ASA 325 mg EC by mouth daily for DVT prophylaxis.) Rojelio Clemens PA-C Sep 13, 2016 14:33
--- NOTE | 2016-09-13 14:35 | PCM.DIORTH ---
Ortho Discharge Instruction Date of Service: Sep 13, 2016 Dates of Hospitalization Date of Hospital Admission Sep 09, 2016 at 18:15 Providers Admitting Physician: Benjamin Bojorquez DO Primary Care Physician: Darlyn Lynn MD Attending Physician: Benjamin Bojorquez DO Diet Discharge Diet: No restrictions Activity Discharge Activity-General: No restrictions Right Lower Extremity: Weight Bearing as tolerated Additional Instructions Discharge Instructions Pt will be discharged to home today. Weight bear as tolerated. Pt sent home with Percocet and Oxycodone for breakthrough pain. Would vac will stay in place for up to 5 days. Recommend keeping on through tomorrow at least, if no drainage today through tomorrow, patient may remove wound vac. Patient may continue Benadryl for itching, if redness and itching getting worse , removing dressing may help with this as well. Cover incision as needed once wound vac removed. Do not soak wound, keep clean and dry after vac removal. Follow up in 1 week [address] [facility] with Dr. Bojorquez. Follow Up Plan Follow Up Plan 1 week Rojelio Clemens PA-C Sep 13, 2016 14:35
--- NOTE | 2016-09-13 15:03 | PROG NOTE ---
[address] [address] PROGRESS NOTE PATIENT: ROLAND MCGREGOR : 1980 MR#: [id number] ADMIT: 09/09/2016 JOB ID: [id number] DATE: 09/13/2016 INFECTIOUS DISEASE FOLLOWUP NOTE: REASON FOR FOLLOWUP: MSSA surgical site infection. INTERVAL HISTORY: Recall that this is the 35-year-old woman who was seen on September 10 with MSSA infection of an infected hematoma. This had been drained and the patient was being treated with oral Keflex and doing reasonably well but then developed a seroma on the opposite lower extremity, where another iliotibial band lengthening procedure had been done. The question raised was if the 2nd contralateral surgical site was also infected, and it was our feeling at the time of the consult on September 10 that it was not. Over the past three days the patient has remained well. She has had no fever, chills, or sweats. Her wound was revised and a large wound VAC placed yesterday, and there are preparations being made to discharge her. She has had no fevers, chills, or sweats. PHYSICAL EXAMINATION: The patient has been afebrile since admission four days ago. Temp 36, pulse 82, respiratory rate 18, blood pressure 99/63. She is in no acute distress. Lungs are clear. Cardiac tones normal. About a 15 cm long wound VAC is present over the right lateral upper thigh. LABORATORIES: Include a white count of 5000, creatinine is 0.5. The culture from September 09 remains negative. IMPRESSION: I see no evidence for ongoing infection and the patient has now completed more than two weeks of therapy for the original proven MSSA infection. RECOMMENDATIONS: 1. The cefazolin can be stopped at any time and I see no need for additional oral antibiotics. 2. ID will go ahead and sign off.
--- NOTE | 2016-09-13 15:58 | NUR ---
Discharge Pt discharged to home via private vehicle at 1555 hrs. PIV removed intact. VSS. Pain controlled with 2 Percocet tabs. Prescription was given to pt's spouse prior to discharge so he could pickle pumper medications before the pharmacy closed. All personal possessions sent with pt. Discharge and follow up instructions given to pt and she expressed understanding.
--- NOTE | 2016-09-25 10:52 | PCM.DC.ORT ---
Discharge Summary Date of Service: Sep 25, 2016 Date of Hospital Admission: Sep 09, 2016 at 18:15 Date of Surgery: Sep 09, 2016 Date of Discharge: Sep 13, 2016 Reason for Hospitalization: Right hip infection Procedures Performed: Right hip hematoma/abscess incision and drainage. This was done 2 on September 09 and September 12, with placement of wound VAC. Hospital Course: Patient presented to [facility] surgical suite for the procedure of right hip I&D by Dr. Benjamin Bojorquez on 09/09/2016, then again on 09/12/2016. Patient was prepped for surgery and the procedure was performed successfully, patient was discharged to PACU under stable condition, tolerated the procedure well. Once stabilized in PACU and pain well controlled, patient was admitted to the hospital floor for observation, pain control, and progression with physical therapy. The first 1-2 days the patient was able to resume a regular diet, void on their own, not having any problems with nausea or vomiting. The patient did not have any adverse falls, reactions, or events were all in the hospital. The patient began working with physical therapy on day one then progressed quite well with reasonable pain control. On day 4 the patient was able to ambulate safely on their own, and pain was controlled sufficiently to be discharged to home. Cultures came back negative for any infection. The patient was cleared by infectious disease to be discharged to home. The patient was discharged to home under stable condition with plan to follow- up with patient at 1 week for a postoperative appointment with Dr. Benjamin Bojorquez. Diagnosis at Time of Discharge Status post iliotibial band lengthening. Right hip infection with incision and drainage 2 with wound VAC placement. Problems: Orthopedic Follow up Plan: In One Week in my clinic Discharge Instructions: Pt will be discharged to home today. Weight bear as tolerated. Pt sent home with Percocet and Oxycodone for breakthrough pain. Would vac will stay in place for up to 5 days. Recommend keeping on through tomorrow at least, if no drainage today through tomorrow, patient may remove wound vac. Patient may continue Benadryl for itching, if redness and itching getting worse , removing dressing may help with this as well. Cover incision as needed once wound vac removed. Do not soak wound, keep clean and dry after vac removal. Follow up in 1 week at [facility] with Dr. Bojorquez. Cephalexin (Cephalexin) 500 Mg Capsule 500 MG PO QID Fluoxetine (Fluoxetine) 20 Mg Tablet 20 MG PO DAILY Multivitamin (Multivitamins) 1 Each Capsule 1 EACH PO DAILY Oxybutynin Chloride ER (Oxybutynin Chloride ER) 15 Mg Tab.er.24 15 MG PO DAILY Trazodone (Trazodone) 50 Mg Tablet 50 MG PO HS PRN PRN Insomnia Rojelio Clemens PA-C Sep 25, 2016 10:52
== END 2016-09-13 15:56 | disposition home or self-care (01) | DRG 909 ==
LOC: SAS 12:36 → OSC 18:15
PROVIDERS: ADMIT Orthopaedic Surgery; ATTEND Orthopaedic Surgery
PROC: 0J9L0ZZ Drainage of Right Upper Leg Subcutaneous Tissue and Fascia, Open Approach (ICD-10-PCS; principal; 2016-09-09 14:30)
PROC: 0JQL0ZZ Repair Right Upper Leg Subcutaneous Tissue and Fascia, Open Approach (ICD-10-PCS; 2016-09-12)
PROC: 0JDL0ZZ Extraction of Right Upper Leg Subcutaneous Tissue and Fascia, Open Approach (ICD-10-PCS; 2016-09-12)
DX: L76.34 Postprocedural seroma of skin and subcutaneous tissue following other procedure (principal); Z87.76 Personal history of (corrected) congenital malformations of integument, limbs and musculoskeletal system; Z86.19 Personal history of other infectious and parasitic diseases